=== PATIENT | male | born 1955 | race Caucasian/White ===

== ENCOUNTER 2020-02-16 15:27 | Emergency (ER) | payer BC, SELFPAY ==
[~2020-02-16] VITALS: Ht 167.6 cm; Wt 95.3 kg
[2020-02-16 15:49] VITALS: BP 127/77
--- NOTE | 2020-02-16 15:53 | NUR ---
PATIENT TRIAGED. NOT IN ACUTE DISTRESS. ASKED TO WAIT IN TENT TO BE SEEN BY MD.
[2020-02-16 16:58] VITALS: BP 127/77
--- NOTE | 2020-02-16 16:58 | NUR ---
NOVEL SWAB DONE. WALKED TO LAB
--- NOTE | 2020-02-16 16:59 | NUR ---
Patient discharged with v/s stable. Written and verbal after care instructions given and explained. Patient verbalized understanding. Ambulatory with steady gait. All questions addressed prior to discharge. Advised to follow up with PMD.
== END 2020-02-16 16:59 | disposition home or self-care (01) ==
LOC: MED 15:27
DX: R09.89 Other specified symptoms and signs involving the circulatory and respiratory systems (principal); Z20.828 Contact with and (suspected) exposure to other viral communicable diseases; R53.83 Other fatigue; E78.5 Hyperlipidemia, unspecified; Z98.890 Other specified postprocedural states
CPT/HCPCS: 99283; U0003